=== PATIENT | female | born 1960 | race Caucasian/White ===

== ENCOUNTER 2016-06-08 07:46 | Outpatient (CLI) | payer BC | END 2016-06-08 19:38 | disposition home or self-care (01) | LOC: SMA 07:46 | PROVIDERS: ATTEND General Practice | DX: R92.8 Other abnormal and inconclusive findings on diagnostic imaging of breast (principal) | CPT/HCPCS: 77051; G0204; G0206 ==

== ENCOUNTER 2018-10-24 08:55 | Outpatient (CLI) | payer BC | END 2018-10-24 20:50 | disposition home or self-care (01) | LOC: SMA 08:55 | PROVIDERS: ATTEND General Practice | DX: Z12.31 Encounter for screening mammogram for malignant neoplasm of breast (principal) | CPT/HCPCS: 77067 ==

== ENCOUNTER 2021-11-05 07:41 | Outpatient (CLI) | payer OTHER | END 2021-11-05 19:46 | disposition home or self-care (01) | LOC: SMA 07:41 | PROVIDERS: ATTEND General Practice | DX: Z12.31 Encounter for screening mammogram for malignant neoplasm of breast (principal); N64.89 Other specified disorders of breast | CPT/HCPCS: 77067 ==